=== PATIENT | female | born 1980 | race Caucasian/White ===

== ENCOUNTER 2020-11-06 09:31 | Outpatient (CLI) | payer OTHER | END 2020-11-06 09:32 | disposition home or self-care (01) | LOC: BICRAD 09:31 | PROVIDERS: ATTEND Family Medicine | DX: M54.6 Pain in thoracic spine (principal); M54.2 Cervicalgia; M99.03 Segmental and somatic dysfunction of lumbar region; M47.814 Spondylosis without myelopathy or radiculopathy, thoracic region; M43.13 Spondylolisthesis, cervicothoracic region; M51.87 Other intervertebral disc disorders, lumbosacral region | CPT/HCPCS: 72052; 72072; 72100 ==

== ENCOUNTER 2021-02-10 13:53 | Outpatient (CLI) | payer OTHER | END 2021-02-10 13:54 | disposition home or self-care (01) | LOC: BICMAMMO 13:53 | PROVIDERS: ATTEND Family Medicine | DX: Z12.31 Encounter for screening mammogram for malignant neoplasm of breast (principal) | CPT/HCPCS: 77063; 77067 ==

== ENCOUNTER 2021-02-25 14:59 | Outpatient (CLI) | payer OTHER | END 2021-02-25 15:00 | disposition home or self-care (01) | LOC: BICRAD 14:59 | PROVIDERS: ATTEND Family Medicine | DX: M25.552 Pain in left hip (principal) ==